=== PATIENT | male | born 1970 | race Caucasian/White ===

== ENCOUNTER 2017-10-19 16:30 | Emergency (ER) | payer BC, OTHER ==
[2017-10-19 16:41] VITALS: BP 117/81; PULSE 87; TEMP 98.1; BMI 27.6
[2017-10-19] MEDS ORDERED: oxyCODONE HCL 5 MG TABLET PO ONE (16:45)
--- NOTE | 2017-10-19 16:45 | PDOC ---
History of Present Illness - General History Source: Patient Exam Limitations: No Limitations - History of Present Illness Initial Comments: 10/19/17 16:52 The patient is a 47 year old male, with no significant past medical history, who presents to the emergency department with right ankle pain and swelling which occurred while the patient was playing volleyball just prior to presentation. The patient states that the landed sideways on his right ankle and immediately heard a cracking/popping sound. He states that he has not been able to bear weight on that leg since the injury because it is too painful. He reports that he took three extra strength Tylenol tablets for pain which he states have not helped significantly. The patient denies any other injury. Allergies: Ibuprofen (angioedema). Past Surgical History: None reported. Social History: Non-smoker. Denies alcohol or drug use. PCP: Dr. William Galvan <Tierra Randolph - Last Filed: 10/19/17 16:54> <Sonia Joy - Last Filed: 10/19/17 18:41> - General Chief Complaint: Injury Stated Complaint: RT ANKLE PAIN, SWELLING Time Seen by Provider: 10/19/17 16:35 Past History <Tierra Randolph - Last Filed: 10/19/17 16:54> - Past Medical History COPD: No - Suicide/Smoking/Psychosocial Hx Smoking History: Never smoked Have you smoked in the past 12 months: No Information on smoking cessation initiated: No Hx Alcohol Use: No Substance Use Type: None <Sonia Joy - Last Filed: 10/19/17 18:41> - Past Medical History Allergies/Adverse Reactions: Allergies Allergy/AdvReac Type Severity Reaction Status Date / Time ibuprofen Allergy Verified 10/19/17 17:04 Home Medications: Ambulatory Orders Acetaminophen [Tylenol] 1,500 mg PO ONCE 10/19/17 Oxycodone HCl/Acetaminophen [Percocet 5-325 mg Tablet] 1 - 2 tab PO Q6H PRN #20 tab MDD 8 tabs 10/19/17 Review of Systems - Review of Systems Able to Perform ROS?: Yes Comments:: 10/19/17 16:52 GENERAL/CONSTITUTIONAL: No fever or chills. No weakness. HEAD, EYES, EARS, NOSE AND THROAT: No change in vision. No ear pain or discharge. No sore throat. MUSCULOSKELETAL: +Right ankle pain and swelling. No neck or back pain. SKIN: No rash. NEUROLOGIC: No headache, vertigo, loss of consciousness, or change in strength/ sensation. <Tierra Randolph - Last Filed: 10/19/17 16:54> *Physical Exam - Vital Signs Last Vital Signs Temp Pulse Resp BP Pulse Ox 98.1 F 87 18 117/81 96 10/19/17 16:30 10/19/17 16:30 10/19/17 16:30 10/19/17 16:30 10/19/17 16:30 <Tierra Randolph - Last Filed: 10/19/17 16:54> - Vital Signs Last Vital Signs Temp Pulse Resp BP Pulse Ox 98.1 F 87 18 117/81 96 10/19/17 16:30 10/19/17 16:30 10/19/17 16:30 10/19/17 16:30 10/19/17 16:30 - Physical Exam Comments: GENERAL: Awake, alert, and fully oriented, in no acute distress HEAD: No signs of trauma EXTREMITIES: R lateral malleolus with significant edema and tenderness. Dec ROM of ankle due to pain. Distal N/V intact. Remainder of extremities with normal range of motion, no edema. No clubbing or cyanosis. No cords, erythema, or tenderness NEUROLOGICAL: Cranial nerves II through XII grossly intact. Normal speech, normal gait SKIN: Warm, Dry, normal turgor, no rashes or lesions noted. <Sonia Joy - Last Filed: 10/19/17 18:41> Procedures - Splinting Pre-Proc Neuro Vasc Exam: normal Pre-Made Type: aircast Post-Proc Neuro Vasc Exam: normal <Sonia Joy - Last Filed: 10/19/17 18:41> Medical Decision Making - Medical Decision Making 10/19/17 18:41 Pt crutch trained. Aircast in place. F/u with ortho if not improving. <Sonia Joy - Last Filed: 10/19/17 18:41> *DC/Admit/Observation/Transfer - Attestations Scribe Attestion: 10/19/17 16:53 Documentation prepared by Tierra Randolph, acting as medical appliance maker for Sonia Joy MD. <Tierra Randolph - Last Filed: 10/19/17 16:54> - Discharge Dispostion Decision to Admit order: No <Sonia Joy - Last Filed: 10/19/17 18:41> Diagnosis at time of Disposition: Ankle sprain Qualifiers: Encounter type: initial encounter Involved ligament of ankle: unspecified ligament Laterality: right Qualified Code(s): S93.401A - Sprain of unspecified ligament of right ankle, initial encounter - Discharge Dispostion Disposition: HOME Condition at time of disposition: Stable - Prescriptions Prescriptions: Oxycodone HCl/Acetaminophen [Percocet 5-325 mg Tablet] 1 - 2 tab PO Q6H PRN #20 tab MDD 8 tabs PRN Reason: Severe Pain - Referrals Referrals: William Galvan MD [Primary Care Provider] - - Patient Instructions Printed Discharge Instructions: DI for Ankle Sprain - Post Discharge Activity Forms/Work/School Notes: Back to Work
== END 2017-10-19 18:15 | disposition home or self-care (01) ==
LOC: FER 16:30
PROC: 2W3QX1Z Immobilization of Right Lower Leg using Splint (ICD-10-PCS; principal; 2017-10-19)
DX: S93.401A Sprain of unspecified ligament of right ankle, initial encounter (principal); X58.XXXA Exposure to other specified factors, initial encounter; Y93.68 Activity, volleyball (beach) (court); Y92.9 Unspecified place or not applicable
CPT/HCPCS: 73590-TC-RT-FY; 99282-25